=== PATIENT | female | born 2000 | race Caucasian/White ===

== ENCOUNTER 2023-08-31 19:02 | Emergency (ER) | payer BC ==
[~2023-08-31] VITALS: Ht 167.6 cm; Wt 65.9 kg
[2023-08-31 19:14] VITALS: TEMP 98.2
[2023-08-31] MEDS ORDERED: NAPROSYN500 MG PO (22:13)
[2023-08-31 23:54] VITALS: BP 117/86; PULSE 96
== END 2023-08-31 22:35 | disposition home or self-care (01) ==
LOC: COL.ER 19:02 → EDBD 19:03 → COL.ER 19:03
DX: S02.2XXA Fracture of nasal bones, initial encounter for closed fracture (principal); Z28.310 Unvaccinated for COVID-19; W21.07XA Struck by softball, initial encounter